=== PATIENT | male | born 1930 | race Caucasian/White ===

== ENCOUNTER 2019-03-28 12:28 | Inpatient (IN) ==
[2019-03-28 13:24] LABS: Bilirubin,Urine Negative (Negative); Blood,Urine Negative (Negative); Clarity,Urine Clear (Clear); Color,Urine Yellow (Yellow); Glucose,Urine (UA) Normal (Normal); Ketones,Urine Negative (Negative); Leukocyte Esterase,Urine Negative (Negative); Nitrite,Urine Negative (Negative); Protein,Urine 100 mg/dL (Neg-Trace); Specific Gravity,Urine 1.021 (1.010-1.025); Urobilinogen,Urine Normal (Normal)
[2019-03-28 13:28] LABS: Bacteria,Urine None Seen per hpf (None-Few); Hyaline Casts,Urine None Seen per lpf (None-Few); RBC,Urine 0-3 per hpf (0-3); Squamous Epithelial Cell,Urine Few per lpf (None-Few); WBC,Urine 0-3 per hpf (0-3)
[2019-03-28 13:50] LABS: Mean Corpuscular HGB Conc 33.3 g/dL (31.6-35.5); Mean Corpuscular Hemoglobin 30.3 pg (28.0-33.3); Mean Corpuscular Volume 90.9 fL (83.0-100.0); Mean Platelet Volume 8.6 fL (9.4-12.4); Monocytes # 1.2 K/mcL (0.0-1.3); Platelet Count 751 K/mcL (140-400); Red Blood Count 2.31 M/mcL (4.19-5.50); Red Cell Distribution Width 19.8 % (11.5-14.5); White Blood Count 14.7 K/mcL (4.3-11.1)
[2019-03-28 14:00] LABS: BUN/Creatinine Ratio 23 (6-26); Blood Urea Nitrogen 21 mg/dL (8-23); Calcium 8.7 mg/dL (8.6-10.3); Carbon Dioxide 23 mEq/L (23-29); Chloride 85 mEq/L (98-107); Glucose 162 mg/dL (70-105); Osmolality,Calculated 251 (280-300); Potassium 4.4 mEq/L (3.5-5.1); Sodium 117 mEq/L (136-145); eGFR For African Americans > 60 (> 60); eGFR For Non-African Americans > 60 (> 60)
[2019-03-28] MEDS ORDERED: 0.9 % Sodium Chloride 500 ML IVC ONE (14:07)
[2019-03-28 14:33] LABS: Eosinophils # 0.3 K/mcL (0.0-0.6); Lymphocytes # 1.2 K/mcL (0.6-4.6); Neutrophils # 11.8 K/mcL (1.6-8.9)
[2019-03-28 14:35] LABS: Anisocytosis 1+ (Not Present); Platelet Estimate Marked Increase (Normal)
[2019-03-28] MEDS ORDERED: Ondansetron 4 MG/2 ML VIAL IVP PRN (15:35)
[2019-03-28] MEDS ORDERED: Naloxone 0.4 MG/ML INJ IVP PRN (15:35)
[2019-03-28] MEDS ORDERED: Dextrose Gel 15 GM/37.5 ML TUBE PO PRN ×2 (16:28)
[2019-03-28] MEDS ORDERED: *HR* Dextrose 50 % in Water (Syg) 50 ML SYRINGE IVP PRN (16:28)
[2019-03-28] MEDS ORDERED: D5% in Water 1,000 ML IVC PRN (16:28)
[2019-03-28] MEDS ORDERED: Acetaminophen 325 MG TABLET PO PRN (16:42)
[2019-03-28] MEDS ORDERED: *HR* HYDROcodone/Acet 5/325 mg TABLET PO PRN (16:42)
[2019-03-28 17:12] LABS: BUN/Creatinine Ratio 23 (6-26); Blood Urea Nitrogen 19 mg/dL (8-23); Calcium 8.5 mg/dL (8.6-10.3); Carbon Dioxide 22 mEq/L (23-29); Chloride 87 mEq/L (98-107); Glucose 154 mg/dL (70-105); Osmolality,Calculated 251 (280-300); Potassium 4.3 mEq/L (3.5-5.1); Sodium 118 mEq/L (136-145); eGFR For African Americans > 60 (> 60); eGFR For Non-African Americans > 60 (> 60)
[2019-03-28] MEDS ORDERED: Furosemide 40 MG/4 ML VIAL IVP ONE (18:00)
[2019-03-28] MEDS ORDERED: 0.9 % Sodium Chloride 250 ML ONE ×2 (18:19→22:06)
[2019-03-28] MEDS: Insulin LISPRO 300 UNITS/3 ML VIAL SQ SCH ×2 (18:44→23:02)
[2019-03-28] MEDS: Ipratropium/Albuterol Neb 3 ML IH SCH (19:57)
[2019-03-29] MEDS: Ipratropium/Albuterol Neb 3 ML IH SCH ×7 (00:19→23:08)
[2019-03-29] MEDS: 0.9 % Sodium Chloride 1,000 ML IVC SCH ×3 (01:31→11:45)
[2019-03-29] MEDS: Piperacillin/Tazobactam 3.375 GM in 0.9 % Sodium Chloride Mini Bag 100 ML IVPB SCH ×4 (01:32→17:36)
[2019-03-29 04:22] LABS: Mean Corpuscular HGB Conc 33.7 g/dL (31.6-35.5); Mean Corpuscular Hemoglobin 29.9 pg (28.0-33.3); Mean Corpuscular Volume 88.8 fL (83.0-100.0); Mean Platelet Volume 8.4 fL (9.4-12.4); Nucleated Red Blood Cells 1.6 /100 WBC (0); Platelet Count 642 K/mcL (140-400); Red Blood Count 3.04 M/mcL (4.19-5.50); Red Cell Distribution Width 17.9 % (11.5-14.5); White Blood Count 13.5 K/mcL (4.3-11.1)
[2019-03-29 04:38] LABS: Hemoglobin 9.1 g/dL (12.9-16.9)
[2019-03-29 04:45] LABS: Albumin 3.3 g/dL (3.5-5.7); Albumin/Globulin Ratio 1.3 (1.1-2.2); Bilirubin,Direct 0.2 mg/dL (0.0-0.2); Bilirubin,Total 1.2 mg/dL (0.3-1.0); Globulin 2.6 g/dL (2.4-3.5); Total Protein 5.9 g/dL (6.4-8.9); Uric Acid 5.4 mg/dL (2.3-7.6)
[2019-03-29 04:52] LABS: BUN/Creatinine Ratio 19 (6-26); Blood Urea Nitrogen 18 mg/dL (8-23); Calcium 8.7 mg/dL (8.6-10.3); Carbon Dioxide 24 mEq/L (23-29); Chloride 87 mEq/L (98-107); Glucose 153 mg/dL (70-105); Magnesium 1.4 mg/dL (1.6-2.6); Osmolality,Calculated 255 (280-300); Sodium 120 mEq/L (136-145); eGFR For African Americans > 60 (> 60); eGFR For Non-African Americans > 60 (> 60)
[2019-03-29 06:16] LABS: Anisocytosis 1+ (Not Present); Eosinophils # 0.3 K/mcL (0.0-0.6); Lymphocytes # 1.6 K/mcL (0.6-4.6); Monocytes # 0.3 K/mcL (0.0-1.3); Neutrophils # 11.3 K/mcL (1.6-8.9); Platelet Estimate Increased (Normal); Polychromasia 1+ (Not Present); Reactive Lymphocytes Present (Not Present)
[2019-03-29] MEDS: Insulin LISPRO 300 UNITS/3 ML VIAL SQ SCH ×4 (07:51→20:50)
[2019-03-29 11:45] LABS: BUN/Creatinine Ratio 16 (6-26); Blood Urea Nitrogen 17 mg/dL (8-23); Calcium 8.2 mg/dL (8.6-10.3); Carbon Dioxide 22 mEq/L (23-29); Chloride 89 mEq/L (98-107); Glucose 190 mg/dL (70-105); Osmolality,Calculated 259 (280-300); Potassium 3.8 mEq/L (3.5-5.1); Sodium 121 mEq/L (136-145); eGFR For African Americans > 60 (> 60); eGFR For Non-African Americans > 60 (> 60)
[2019-03-29 12:05] LABS: Thyroid Stimulating Hormone 6.467 mcIU/mL (0.340-5.600)
[2019-03-29 14:54] LABS: BUN/Creatinine Ratio 17 (6-26); Blood Urea Nitrogen 19 mg/dL (8-23); Calcium 8.2 mg/dL (8.6-10.3); Carbon Dioxide 21 mEq/L (23-29); Chloride 89 mEq/L (98-107); Glucose 221 mg/dL (70-105); Osmolality,Calculated 263 (280-300); Sodium 122 mEq/L (136-145); eGFR For African Americans > 60 (> 60); eGFR For Non-African Americans > 60 (> 60)
[2019-03-29] MEDS ORDERED: Gadolinium Contrast Agent (WT Based) IV PRN (16:53)
[2019-03-29 18:15] LABS: BUN/Creatinine Ratio 19 (6-26); Blood Urea Nitrogen 20 mg/dL (8-23); Calcium 8.3 mg/dL (8.6-10.3); Carbon Dioxide 23 mEq/L (23-29); Chloride 89 mEq/L (98-107); Glucose 255 mg/dL (70-105); Osmolality,Calculated 263 (280-300); Sodium 121 mEq/L (136-145); eGFR For African Americans > 60 (> 60); eGFR For Non-African Americans > 60 (> 60)
[2019-03-29] MEDS: Insulin DETEMIR 100 UNIT/ML X5UNITS SQ SCH (20:49)
[2019-03-29 21:33] LABS: BUN/Creatinine Ratio 19 (6-26); Blood Urea Nitrogen 21 mg/dL (8-23); Calcium 8.4 mg/dL (8.6-10.3); Carbon Dioxide 23 mEq/L (23-29); Chloride 90 mEq/L (98-107); Glucose 157 mg/dL (70-105); Osmolality,Calculated 262 (280-300); Potassium 4.3 mEq/L (3.5-5.1); Sodium 123 mEq/L (136-145); eGFR For African Americans > 60 (> 60); eGFR For Non-African Americans > 60 (> 60)
[2019-03-30] MEDS: Piperacillin/Tazobactam 3.375 GM in 0.9 % Sodium Chloride Mini Bag 100 ML IVPB SCH ×3 (01:04→17:52)
[2019-03-30] MEDS: Ipratropium/Albuterol Neb 3 ML IH SCH ×5 (05:14→20:00)
[2019-03-30 05:30] LABS: Hemoglobin 7.6 g/dL (12.9-16.9); Mean Corpuscular Hemoglobin 30.8 pg (28.0-33.3); Mean Corpuscular Volume 93.1 fL (83.0-100.0); Mean Platelet Volume 8.6 fL (9.4-12.4); Nucleated Red Blood Cells 1.2 /100 WBC (0); Platelet Count 507 K/mcL (140-400); Red Blood Count 2.47 M/mcL (4.19-5.50); Red Cell Distribution Width 19.2 % (11.5-14.5); White Blood Count 11.1 K/mcL (4.3-11.1)
[2019-03-30 05:59] LABS: BUN/Creatinine Ratio 18 (6-26); Blood Urea Nitrogen 19 mg/dL (8-23); Calcium 8.7 mg/dL (8.6-10.3); Carbon Dioxide 24 mEq/L (23-29); Chloride 90 mEq/L (98-107); Glucose 194 mg/dL (70-105); Osmolality,Calculated 266 (280-300); Potassium 4.1 mEq/L (3.5-5.1); Sodium 124 mEq/L (136-145); eGFR For African Americans > 60 (> 60); eGFR For Non-African Americans > 60 (> 60)
[2019-03-30 06:01] LABS: Lymphocytes # 1.1 K/mcL (0.6-4.6); Monocytes # 1.1 K/mcL (0.0-1.3); Neutrophils # 8.9 K/mcL (1.6-8.9); Reactive Lymphocytes Present (Not Present)
[2019-03-30 06:02] LABS: Platelet Estimate Increased (Normal)
[2019-03-30] MEDS: Hydroxyurea 500 MG CAPSULE PO SCH ×2 (09:27→21:13)
[2019-03-30] MEDS: Metoprolol XL (24 HR) Succ 50 MG TAB.ER.24H PO SCH (09:27)
[2019-03-30] MEDS: Magnesium Oxide 400 MG TABLET PO SCH (09:27)
[2019-03-30] MEDS: Aspirin 81 MG TAB.CHEW PO SCH (09:27)
[2019-03-30] MEDS: Insulin LISPRO 300 UNITS/3 ML VIAL SQ SCH ×4 (09:31→21:15)
[2019-03-30] MEDS ORDERED: Furosemide 20 MG/2 ML VIAL IVP ONE (10:26)
[2019-03-30] MEDS: Loratadine 10 MG TABLET PO SCH (12:42)
[2019-03-30] MEDS ORDERED: 0.9 % Sodium Chloride 250 ML ONE (16:46)
[2019-03-30] MEDS: Fluticasone Propionate Nasal 50 MCG/SPRAY BOTTLE NS SCH (17:52)
[2019-03-30] MEDS ORDERED: Lisinopril 20 MG TABLET PO SCH (21:00)
[2019-03-30] MEDS: Insulin DETEMIR 100 UNIT/ML X5UNITS SQ SCH (21:14)
[2019-03-31] MEDS: Ipratropium/Albuterol Neb 3 ML IH SCH ×3 (00:16→07:53)
[2019-03-31] MEDS: Piperacillin/Tazobactam 3.375 GM in 0.9 % Sodium Chloride Mini Bag 100 ML IVPB SCH ×2 (00:40→09:12)
[2019-03-31 03:39] LABS: Hemoglobin 8.6 g/dL (12.9-16.9); Mean Corpuscular HGB Conc 34.4 g/dL (31.6-35.5); Mean Corpuscular Hemoglobin 31.3 pg (28.0-33.3); Mean Corpuscular Volume 90.9 fL (83.0-100.0); Mean Platelet Volume 8.5 fL (9.4-12.4); Platelet Count 486 K/mcL (140-400); Red Blood Count 2.75 M/mcL (4.19-5.50); Red Cell Distribution Width 18.6 % (11.5-14.5); White Blood Count 9.1 K/mcL (4.3-11.1)
[2019-03-31 03:56] LABS: BUN/Creatinine Ratio 20 (6-26); Blood Urea Nitrogen 22 mg/dL (8-23); Calcium 8.2 mg/dL (8.6-10.3); Carbon Dioxide 22 mEq/L (23-29); Chloride 92 mEq/L (98-107); Glucose 174 mg/dL (70-105); Osmolality,Calculated 264 (280-300); Potassium 4.2 mEq/L (3.5-5.1); Sodium 123 mEq/L (136-145); eGFR For African Americans > 60 (> 60); eGFR For Non-African Americans > 60 (> 60)
[2019-03-31 08:09] VITALS: BP 132/76
[2019-03-31] MEDS: Aspirin 81 MG TAB.CHEW PO SCH (09:11)
[2019-03-31] MEDS: Loratadine 10 MG TABLET PO SCH (09:11)
[2019-03-31] MEDS: Metoprolol XL (24 HR) Succ 50 MG TAB.ER.24H PO SCH (09:12)
[2019-03-31] MEDS: Magnesium Oxide 400 MG TABLET PO SCH (09:12)
[2019-03-31] MEDS: Fluticasone Propionate Nasal 50 MCG/SPRAY BOTTLE NS SCH (09:14)
[2019-03-31] MEDS: Insulin LISPRO 300 UNITS/3 ML VIAL SQ SCH (09:17)
[2019-03-31] MEDS: Hydroxyurea 500 MG CAPSULE PO SCH (09:28)
== END 2019-03-31 12:37 | disposition home or self-care (01) | DRG 643 ==
LOC: EMEROOARM 12:28 → 2ANU 12:28 → SUATTDRO 15:58 → 2ANU 16:54
PROVIDERS: ADMIT Internal Medicine; ATTEND Internal Medicine

== ENCOUNTER 2019-04-06 00:35 | Inpatient (IN) ==
[2019-04-06 04:19] LABS: Basophils # 0.2 K/mcL (0.0-0.2); Basophils % 2.2 %; Eosinophils % 0.1 %; Hematocrit 25.2 % (37.5-50.1); Lymphocytes # 0.7 K/mcL (0.6-4.6); Lymphocytes % 8.7 %; Mean Corpuscular HGB Conc 31.7 g/dL (31.6-35.5); Mean Corpuscular Hemoglobin 30.2 pg (28.0-33.3); Mean Corpuscular Volume 95.1 fL (83.0-100.0); Mean Platelet Volume 8.8 fL (9.4-12.4); Monocytes # 0.7 K/mcL (0.0-1.3); Monocytes % 8.9 %; Nucleated Red Blood Cells 0.6 /100 WBC (0); Platelet Count 500 K/mcL (140-400); Red Blood Count 2.65 M/mcL (4.19-5.50); Red Cell Distribution Width 17.3 % (11.5-14.5); Segmented Neutrophils % 62.1 %; White Blood Count 8.1 K/mcL (4.3-11.1)
[2019-04-06 04:37] LABS: BUN/Creatinine Ratio 22 (6-26); Blood Urea Nitrogen 27 mg/dL (8-23); Calcium 8.5 mg/dL (8.6-10.3); Carbon Dioxide 24 mEq/L (23-29); Chloride 95 mEq/L (98-107); Glucose 191 mg/dL (70-105); Osmolality,Calculated 274 (280-300); Potassium 4.5 mEq/L (3.5-5.1); Sodium 127 mEq/L (136-145); eGFR For African Americans > 60 (> 60); eGFR For Non-African Americans 56 (> 60)
[2019-04-06 05:03] LABS: Platelet Estimate Increased (Normal); Polychromasia 1+ (Not Present)
[2019-04-06] MEDS ORDERED: Acyclovir 700 MG in D5% in Water 250 ML IVPB ONE (06:20)
[2019-04-06] MEDS ORDERED: *HR* OxyCODONE Immed Rel 5 MG TABLET PO ONE (06:21)
[2019-04-06] MEDS ORDERED: Ipratropium/Albuterol Neb 3 ML IH PRN (10:26)
[2019-04-06] MEDS ORDERED: Furosemide 20 MG/2 ML VIAL IVP ONE (10:29)
[2019-04-06] MEDS ORDERED: *HR* Dextrose 50 % in Water (Syg) 50 ML SYRINGE IVP PRN (11:01)
[2019-04-06] MEDS ORDERED: Dextrose Gel 15 GM/37.5 ML TUBE PO PRN ×2 (11:01)
[2019-04-06] MEDS ORDERED: D5% in Water 1,000 ML IVC PRN (11:01)
[2019-04-06] MEDS: Ascorbic Acid 500 MG TABLET PO SCH (12:00)
[2019-04-06] MEDS: Metoprolol XL (24 HR) Succ 50 MG TAB.ER.24H PO SCH (12:01)
[2019-04-06] MEDS: Insulin LISPRO 300 UNITS/3 ML VIAL SQ SCH ×3 (13:31→21:21)
[2019-04-06] MEDS: Hydroxyurea 500 MG CAPSULE PO SCH (21:36)
[2019-04-07 04:39] LABS: Hematocrit 29.1 % (37.5-50.1); Hemoglobin 9.3 g/dL (12.9-16.9)
[2019-04-07 04:59] LABS: Alanine Aminotransferase 10 Units/L (7-52); Albumin 3.2 g/dL (3.5-5.7); Albumin/Globulin Ratio 1.3 (1.1-2.2); Alkaline Phosphatase 114 Units/L (34-104); Aspartate Amino Transferase 20 Units/L (13-39); BUN/Creatinine Ratio 21 (6-26); Bilirubin,Total 0.5 mg/dL (0.3-1.0); Blood Urea Nitrogen 23 mg/dL (8-23); Calcium 8.6 mg/dL (8.6-10.3); Carbon Dioxide 24 mEq/L (23-29); Chloride 95 mEq/L (98-107); Globulin 2.5 g/dL (2.4-3.5); Glucose 136 mg/dL (70-105); Osmolality,Calculated 266 (280-300); Potassium 4.5 mEq/L (3.5-5.1); Sodium 125 mEq/L (136-145); Total Protein 5.7 g/dL (6.4-8.9); eGFR For African Americans > 60 (> 60); eGFR For Non-African Americans > 60 (> 60)
[2019-04-07] MEDS: Hydroxyurea 500 MG CAPSULE PO SCH ×2 (09:41→22:00)
[2019-04-07] MEDS: Loratadine 10 MG TABLET PO SCH (09:41)
[2019-04-07] MEDS: Aspirin 81 MG TAB.CHEW PO SCH (09:42)
[2019-04-07] MEDS: Ascorbic Acid 500 MG TABLET PO SCH (09:42)
[2019-04-07] MEDS: Metoprolol XL (24 HR) Succ 50 MG TAB.ER.24H PO SCH (09:42)
[2019-04-07] MEDS: Multivit/Ca/Min/Fe/FA 1 TAB TABLET PO SCH (09:42)
[2019-04-07] MEDS: Magnesium Oxide 400 MG TABLET PO SCH (09:42)
[2019-04-07] MEDS: Insulin LISPRO 300 UNITS/3 ML VIAL SQ SCH ×4 (09:44→21:57)
[2019-04-07] MEDS ORDERED: Ipratropium/Albuterol Neb 3 ML IH PRN (13:31)
[2019-04-07] MEDS: Sucralfate 1 GM TABLET PO SCH ×2 (17:54→22:00)
[2019-04-08] MEDS ORDERED: Aminoglycoside Consult 1 EACH MC ONE (07:16)
[2019-04-08 08:01] LABS: Hematocrit 26.3 % (37.5-50.1); Hemoglobin 8.3 g/dL (12.9-16.9); Mean Corpuscular HGB Conc 31.6 g/dL (31.6-35.5); Mean Corpuscular Hemoglobin 30.2 pg (28.0-33.3); Mean Corpuscular Volume 95.6 fL (83.0-100.0); Mean Platelet Volume 8.8 fL (9.4-12.4); Platelet Count 595 K/mcL (140-400); Red Blood Count 2.75 M/mcL (4.19-5.50)
[2019-04-08 08:14] LABS: BUN/Creatinine Ratio 22 (6-26); Blood Urea Nitrogen 29 mg/dL (8-23); Calcium 8.6 mg/dL (8.6-10.3); Carbon Dioxide 24 mEq/L (23-29); Chloride 92 mEq/L (98-107); Glucose 136 mg/dL (70-105); Osmolality,Calculated 272 (280-300); Potassium 4.6 mEq/L (3.5-5.1); Sodium 127 mEq/L (136-145); eGFR For African Americans > 60 (> 60); eGFR For Non-African Americans 51 (> 60)
[2019-04-08] MEDS ORDERED: NON-FORMULARY MEDICATION 1 EACH EACH (Pantoprazole Sodium [Protonix] 40 MG) PO SCH (09:00)
[2019-04-08] MEDS: Insulin LISPRO 300 UNITS/3 ML VIAL SQ SCH ×4 (09:39→19:55)
[2019-04-08] MEDS: Sucralfate 1 GM TABLET PO SCH ×4 (09:54→19:59)
[2019-04-08] MEDS: Hydroxyurea 500 MG CAPSULE PO SCH ×2 (09:57→19:57)
[2019-04-08] MEDS: Metoprolol XL (24 HR) Succ 50 MG TAB.ER.24H PO SCH (09:57)
[2019-04-08] MEDS: Aspirin 81 MG TAB.CHEW PO SCH (09:58)
[2019-04-08] MEDS: Loratadine 10 MG TABLET PO SCH (09:58)
[2019-04-08] MEDS: Ascorbic Acid 500 MG TABLET PO SCH (09:58)
[2019-04-08] MEDS: Magnesium Oxide 400 MG TABLET PO SCH (09:58)
[2019-04-08] MEDS: Multivit/Ca/Min/Fe/FA 1 TAB TABLET PO SCH (09:58)
[2019-04-08] MEDS: Piperacillin/Tazobactam 3.375 GM in 0.9 % Sodium Chloride Mini Bag 100 ML IVPB SCH ×3 (10:55→23:23)
[2019-04-08] MEDS ORDERED: 0.9 % Sodium Chloride 1,000 ML IVC SCH (12:15)
[2019-04-08] MEDS: Acyclovir 750 MG in D5% in Water 250 ML IVPB SCH (16:58)
[2019-04-09] MEDS: Acyclovir 750 MG in D5% in Water 250 ML IVPB SCH ×2 (04:56→18:40)
[2019-04-09 05:09] LABS: Hematocrit 23.8 % (37.5-50.1); Hemoglobin 7.8 g/dL (12.9-16.9); Mean Corpuscular HGB Conc 32.8 g/dL (31.6-35.5); Mean Corpuscular Hemoglobin 30.2 pg (28.0-33.3); Mean Corpuscular Volume 92.2 fL (83.0-100.0); Mean Platelet Volume 8.7 fL (9.4-12.4); Platelet Count 558 K/mcL (140-400); Red Blood Count 2.58 M/mcL (4.19-5.50); Red Cell Distribution Width 16.5 % (11.5-14.5); White Blood Count 16.3 K/mcL (4.3-11.1)
[2019-04-09 05:12] LABS: Bilirubin,Urine Negative (Negative); Blood,Urine Trace (Negative); Clarity,Urine Cloudy (Clear); Color,Urine Yellow (Yellow); Glucose,Urine (UA) Normal (Normal); Ketones,Urine Negative (Negative); Leukocyte Esterase,Urine Negative (Negative); Nitrite,Urine Negative (Negative); Protein,Urine 100 mg/dL (Neg-Trace); Specific Gravity,Urine 1.022 (1.010-1.025); Urobilinogen,Urine Normal (Normal)
[2019-04-09 05:14] LABS: Hyaline Casts,Urine None Seen per lpf (None-Few); RBC,Urine 0-3 per hpf (0-3); WBC,Urine 0-3 per hpf (0-3)
[2019-04-09 05:25] LABS: Bacteria,Urine Few per hpf (None-Few); Squamous Epithelial Cell,Urine Few per lpf (None-Few)
[2019-04-09 05:26] LABS: Uric Acid Crystals,Urine Present
[2019-04-09 05:30] LABS: BUN/Creatinine Ratio 25 (6-26); Blood Urea Nitrogen 29 mg/dL (8-23); Calcium 8.2 mg/dL (8.6-10.3); Carbon Dioxide 22 mEq/L (23-29); Chloride 93 mEq/L (98-107); Glucose 146 mg/dL (70-105); Osmolality,Calculated 266 (280-300); Potassium 4.4 mEq/L (3.5-5.1); Sodium 124 mEq/L (136-145); eGFR For African Americans > 60 (> 60); eGFR For Non-African Americans > 60 (> 60)
[2019-04-09] MEDS: Piperacillin/Tazobactam 3.375 GM in 0.9 % Sodium Chloride Mini Bag 100 ML IVPB SCH ×2 (08:46→20:15)
[2019-04-09] MEDS: Loratadine 10 MG TABLET PO SCH (08:47)
[2019-04-09] MEDS: Aspirin 81 MG TAB.CHEW PO SCH (08:47)
[2019-04-09] MEDS: Multivit/Ca/Min/Fe/FA 1 TAB TABLET PO SCH (08:47)
[2019-04-09] MEDS: Sucralfate 1 GM TABLET PO SCH ×4 (08:47→21:43)
[2019-04-09] MEDS: Ascorbic Acid 500 MG TABLET PO SCH (08:47)
[2019-04-09] MEDS: Hydroxyurea 500 MG CAPSULE PO SCH ×2 (08:47→21:43)
[2019-04-09] MEDS: Metoprolol XL (24 HR) Succ 50 MG TAB.ER.24H PO SCH (08:47)
[2019-04-09] MEDS: Magnesium Oxide 400 MG TABLET PO SCH (08:47)
[2019-04-09] MEDS: Insulin LISPRO 300 UNITS/3 ML VIAL SQ SCH ×4 (08:48→21:44)
[2019-04-10] MEDS: Piperacillin/Tazobactam 3.375 GM in 0.9 % Sodium Chloride Mini Bag 100 ML IVPB SCH ×3 (03:14→22:19)
[2019-04-10 08:13] LABS: Hematocrit 25.5 % (37.5-50.1); Hemoglobin 8.6 g/dL (12.9-16.9); Mean Corpuscular HGB Conc 33.7 g/dL (31.6-35.5); Mean Corpuscular Hemoglobin 30.1 pg (28.0-33.3); Mean Corpuscular Volume 89.2 fL (83.0-100.0); Mean Platelet Volume 9.1 fL (9.4-12.4); Platelet Count 537 K/mcL (140-400); Red Blood Count 2.86 M/mcL (4.19-5.50); Red Cell Distribution Width 16.6 % (11.5-14.5)
[2019-04-10 08:20] LABS: BUN/Creatinine Ratio 25 (6-26); Blood Urea Nitrogen 25 mg/dL (8-23); Calcium 8.1 mg/dL (8.6-10.3); Carbon Dioxide 21 mEq/L (23-29); Chloride 93 mEq/L (98-107); Glucose 152 mg/dL (70-105); Magnesium 1.6 mg/dL (1.6-2.6); Osmolality,Calculated 265 (280-300); Potassium 4.7 mEq/L (3.5-5.1); Sodium 124 mEq/L (136-145); eGFR For African Americans > 60 (> 60); eGFR For Non-African Americans > 60 (> 60)
[2019-04-10] MEDS: Loratadine 10 MG TABLET PO SCH (09:19)
[2019-04-10] MEDS: Magnesium Oxide 400 MG TABLET PO SCH (09:19)
[2019-04-10] MEDS: Sucralfate 1 GM TABLET PO SCH ×4 (09:19→22:19)
[2019-04-10] MEDS: Aspirin 81 MG TAB.CHEW PO SCH (09:19)
[2019-04-10] MEDS: Metoprolol XL (24 HR) Succ 50 MG TAB.ER.24H PO SCH (09:19)
[2019-04-10] MEDS: Hydroxyurea 500 MG CAPSULE PO SCH ×2 (09:19→22:19)
[2019-04-10] MEDS: Ascorbic Acid 500 MG TABLET PO SCH (09:20)
[2019-04-10] MEDS: Insulin LISPRO 300 UNITS/3 ML VIAL SQ SCH ×4 (09:21→22:20)
[2019-04-10] MEDS: Multivit/Ca/Min/Fe/FA 1 TAB TABLET PO SCH (09:21)
[2019-04-10] MEDS: Acyclovir 750 MG in D5% in Water 250 ML IVPB SCH ×2 (09:22→19:07)
[2019-04-10] MEDS: predniSONE 20 MG TABLET PO SCH (12:33)
[2019-04-11] MEDS: Acyclovir 750 MG in D5% in Water 250 ML IVPB SCH ×2 (04:50→17:12)
[2019-04-11 05:02] LABS: Hematocrit 27.7 % (37.5-50.1); Hemoglobin 9.1 g/dL (12.9-16.9); Mean Corpuscular HGB Conc 32.9 g/dL (31.6-35.5); Mean Corpuscular Hemoglobin 29.4 pg (28.0-33.3); Mean Corpuscular Volume 89.4 fL (83.0-100.0); Mean Platelet Volume 8.9 fL (9.4-12.4); Platelet Count 662 K/mcL (140-400); Red Cell Distribution Width 16.1 % (11.5-14.5); White Blood Count 20.2 K/mcL (4.3-11.1)
[2019-04-11 05:18] LABS: BUN/Creatinine Ratio 21 (6-26); Blood Urea Nitrogen 20 mg/dL (8-23); Calcium 8.5 mg/dL (8.6-10.3); Carbon Dioxide 22 mEq/L (23-29); Chloride 93 mEq/L (98-107); Glucose 131 mg/dL (70-105); Osmolality,Calculated 262 (280-300); Potassium 4.2 mEq/L (3.5-5.1); Sodium 124 mEq/L (136-145); eGFR For African Americans > 60 (> 60); eGFR For Non-African Americans > 60 (> 60)
[2019-04-11] MEDS: Piperacillin/Tazobactam 3.375 GM in 0.9 % Sodium Chloride Mini Bag 100 ML IVPB SCH ×3 (06:08→21:38)
[2019-04-11] MEDS: Insulin LISPRO 300 UNITS/3 ML VIAL SQ SCH ×4 (08:08→21:38)
[2019-04-11] MEDS: Sucralfate 1 GM TABLET PO SCH ×4 (08:09→21:38)
[2019-04-11] MEDS: Aspirin 81 MG TAB.CHEW PO SCH (08:09)
[2019-04-11] MEDS: Loratadine 10 MG TABLET PO SCH (08:09)
[2019-04-11] MEDS: Hydroxyurea 500 MG CAPSULE PO SCH ×2 (08:10→21:38)
[2019-04-11] MEDS: Magnesium Oxide 400 MG TABLET PO SCH (08:10)
[2019-04-11] MEDS: Metoprolol XL (24 HR) Succ 50 MG TAB.ER.24H PO SCH (08:10)
[2019-04-11] MEDS: predniSONE 20 MG TABLET PO SCH (08:10)
[2019-04-11 11:41] LABS: Adenovirus F 40/41 PCR Not detected (Not detect); Astrovirus PCR Not detected (Not detect); C.difficile Toxin A/B Gene PCR Not detected (Not detect); Campylobacter by PCR Not detected (Not detect); Cryptosporidium by PCR Not detected (Not detect); Cyclospora cayetanensis PCR Not detected (Not detect); E. coli O157 by PCR Not detected (Not detect); Entamoeba histolytica PCR Not detected (Not detect); Enteroaggregative E.coli(EAEC) Not detected (Not detect); Enteropathogenic E.coli(EPEC) Not detected (Not detect); Enterotoxigenic E.coli (ETEC) Not detected (Not detect); Giardia lamblia PCR Not detected (Not detect); Norovirus GI/GII PCR Not detected (Not detect); Plesiomonas shigelloides PCR Not detected (Not detect); Rotavirus A PCR Not detected (Not detect); Salmonella PCR Not detected (Not detect); Sapovirus PCR Not detected (Not detect); Shig/EnteroinvasiveE coli EIEC Not detected (Not detect); Shigalike tox-prod E coli STEC Not detected (Not detect); Vibrio PCR Not detected (Not detect); Vibrio cholerae PCR Not detected (Not detect); Yersinia enterocolitica PCR Not detected (Not detect)
[2019-04-12] MEDS ORDERED: Haloperidol Lactate 5 MG/ML VIAL IVP ONE ×2 (01:15→02:32)
[2019-04-12] MEDS ORDERED: *HR* Promethazine 25 MG/ML VIAL IVP ONE (02:32)
[2019-04-12] MEDS: Piperacillin/Tazobactam 3.375 GM in 0.9 % Sodium Chloride Mini Bag 100 ML IVPB SCH ×3 (03:09→21:29)
[2019-04-12] MEDS ORDERED: *HR* LORazepam 2 MG/ML VIAL IVP ONE (05:45)
[2019-04-12 06:16] LABS: Hematocrit 25.9 % (37.5-50.1); Hemoglobin 8.7 g/dL (12.9-16.9); Mean Corpuscular HGB Conc 33.6 g/dL (31.6-35.5); Mean Corpuscular Hemoglobin 30.5 pg (28.0-33.3); Mean Corpuscular Volume 90.9 fL (83.0-100.0); Mean Platelet Volume 8.8 fL (9.4-12.4); Platelet Count 814 K/mcL (140-400); Red Blood Count 2.85 M/mcL (4.19-5.50); Red Cell Distribution Width 16.2 % (11.5-14.5); White Blood Count 22.5 K/mcL (4.3-11.1)
[2019-04-12 06:45] LABS: BUN/Creatinine Ratio 20 (6-26); Blood Urea Nitrogen 18 mg/dL (8-23); Calcium 8.6 mg/dL (8.6-10.3); Carbon Dioxide 22 mEq/L (23-29); Chloride 93 mEq/L (98-107); Glucose 156 mg/dL (70-105); Osmolality,Calculated 269 (280-300); Potassium 3.7 mEq/L (3.5-5.1); Sodium 127 mEq/L (136-145); eGFR For African Americans > 60 (> 60); eGFR For Non-African Americans > 60 (> 60)
[2019-04-12] MEDS: Insulin LISPRO 300 UNITS/3 ML VIAL SQ SCH ×5 (07:32→21:27)
[2019-04-12] MEDS: Acyclovir 750 MG in D5% in Water 250 ML IVPB SCH (07:33)
[2019-04-12] MEDS: Furosemide 20 MG/2 ML VIAL IVP ONE (08:04)
[2019-04-12] MEDS: Loratadine 10 MG TABLET PO SCH (08:04)
[2019-04-12] MEDS: Metoprolol XL (24 HR) Succ 50 MG TAB.ER.24H PO SCH (08:04)
[2019-04-12] MEDS: Magnesium Oxide 400 MG TABLET PO SCH (08:04)
[2019-04-12] MEDS: Sucralfate 1 GM TABLET PO SCH ×4 (08:04→21:28)
[2019-04-12] MEDS: Hydroxyurea 500 MG CAPSULE PO SCH ×2 (08:04→21:28)
[2019-04-12] MEDS: Aspirin 81 MG TAB.CHEW PO SCH (08:05)
[2019-04-12] MEDS ORDERED: predniSONE 10 MG TABLET PO ONE (09:00)
[2019-04-12 17:51] LABS: Nucleated Red Blood Cells 0.7 /100 WBC (0)
[2019-04-12 20:50] LABS: Anisocytosis 1+ (Not Present); Eosinophils # 0.2 K/mcL (0.0-0.6); Monocytes # 0.7 K/mcL (0.0-1.3); Neutrophils # 18.9 K/mcL (1.6-8.9); Platelet Estimate Marked Increase (Normal); Reactive Lymphocytes Present (Not Present)
[2019-04-12 20:51] LABS: Poikilocytosis 1+ (Not Present)
[2019-04-12] MEDS ORDERED: traZODone 50 MG TABLET PO SCH (21:00)
[2019-04-13] MEDS: Piperacillin/Tazobactam 3.375 GM in 0.9 % Sodium Chloride Mini Bag 100 ML IVPB SCH ×3 (05:05→21:05)
[2019-04-13 06:16] LABS: Hematocrit 25.1 % (37.5-50.1); Lymphocytes # 1.3 K/mcL (0.6-4.6); Mean Corpuscular HGB Conc 31.9 g/dL (31.6-35.5); Mean Corpuscular Hemoglobin 30.3 pg (28.0-33.3); Mean Corpuscular Volume 95.1 fL (83.0-100.0); Mean Platelet Volume 8.7 fL (9.4-12.4); Nucleated Red Blood Cells 1.1 /100 WBC (0); Platelet Count 814 K/mcL (140-400); Red Blood Count 2.64 M/mcL (4.19-5.50); Red Cell Distribution Width 16.6 % (11.5-14.5); White Blood Count 21.5 K/mcL (4.3-11.1)
[2019-04-13 06:23] LABS: BUN/Creatinine Ratio 16 (6-26); Blood Urea Nitrogen 15 mg/dL (8-23); Calcium 8.7 mg/dL (8.6-10.3); Carbon Dioxide 22 mEq/L (23-29); Chloride 94 mEq/L (98-107); Glucose 163 mg/dL (70-105); Osmolality,Calculated 276 (280-300); Potassium 3.9 mEq/L (3.5-5.1); Sodium 131 mEq/L (136-145); eGFR For African Americans > 60 (> 60); eGFR For Non-African Americans > 60 (> 60)
[2019-04-13] MEDS ORDERED: Haloperidol Lactate 5 MG/ML VIAL IVP ONE (06:26)
[2019-04-13 06:50] LABS: Neutrophils # 19.8 K/mcL (1.6-8.9); Reactive Lymphocytes Present (Not Present)
[2019-04-13 06:51] LABS: Platelet Estimate Increased (Normal)
[2019-04-13] MEDS: Insulin LISPRO 300 UNITS/3 ML VIAL SQ SCH ×4 (09:00→21:06)
[2019-04-13] MEDS: Hydroxyurea 500 MG CAPSULE PO SCH ×2 (09:18→21:06)
[2019-04-13] MEDS: Aspirin 81 MG TAB.CHEW PO SCH (09:18)
[2019-04-13] MEDS: Metoprolol XL (24 HR) Succ 50 MG TAB.ER.24H PO SCH (09:18)
[2019-04-13] MEDS: Sucralfate 1 GM TABLET PO SCH ×4 (09:18→21:06)
[2019-04-13] MEDS: Magnesium Oxide 400 MG TABLET PO SCH (09:19)
[2019-04-13] MEDS: Loratadine 10 MG TABLET PO SCH (09:19)
[2019-04-13] MEDS: Insulin DETEMIR 100 UNIT/ML X5UNITS SQ SCH (21:25)
[2019-04-14] MEDS: Piperacillin/Tazobactam 3.375 GM in 0.9 % Sodium Chloride Mini Bag 100 ML IVPB SCH ×3 (04:27→20:07)
[2019-04-14] MEDS: Insulin LISPRO 300 UNITS/3 ML VIAL SQ SCH ×4 (08:38→20:35)
[2019-04-14] MEDS: Aspirin 81 MG TAB.CHEW PO SCH (08:39)
[2019-04-14] MEDS: Magnesium Oxide 400 MG TABLET PO SCH (08:39)
[2019-04-14] MEDS: Sucralfate 1 GM TABLET PO SCH ×4 (08:40→20:09)
[2019-04-14] MEDS: Hydroxyurea 500 MG CAPSULE PO SCH ×2 (08:40→20:09)
[2019-04-14] MEDS: Loratadine 10 MG TABLET PO SCH (08:40)
[2019-04-14] MEDS: Metoprolol XL (24 HR) Succ 50 MG TAB.ER.24H PO SCH (08:40)
[2019-04-14 13:23] LABS: Hematocrit 23.4 % (37.5-50.1); Hemoglobin 7.6 g/dL (12.9-16.9); Mean Corpuscular HGB Conc 32.5 g/dL (31.6-35.5); Mean Corpuscular Volume 92.5 fL (83.0-100.0); Mean Platelet Volume 8.7 fL (9.4-12.4); Nucleated Red Blood Cells 0.8 /100 WBC (0); Platelet Count 639 K/mcL (140-400); Red Blood Count 2.53 M/mcL (4.19-5.50); Red Cell Distribution Width 16.7 % (11.5-14.5); White Blood Count 16.1 K/mcL (4.3-11.1)
[2019-04-14 13:34] LABS: BUN/Creatinine Ratio 18 (6-26); Blood Urea Nitrogen 14 mg/dL (8-23); Calcium 8.5 mg/dL (8.6-10.3); Carbon Dioxide 25 mEq/L (23-29); Chloride 98 mEq/L (98-107); Glucose 187 mg/dL (70-105); Osmolality,Calculated 277 (280-300); Potassium 3.9 mEq/L (3.5-5.1); Sodium 131 mEq/L (136-145); eGFR For African Americans > 60 (> 60); eGFR For Non-African Americans > 60 (> 60)
[2019-04-14 13:41] LABS: Lymphocytes # 1.6 K/mcL (0.6-4.6); Neutrophils # 14.5 K/mcL (1.6-8.9); Platelet Estimate Increased (Normal)
[2019-04-14 13:42] LABS: Anisocytosis 1+ (Not Present)
[2019-04-14] MEDS ORDERED: Furosemide 20 MG/2 ML VIAL IVP ONE (13:57)
[2019-04-14] MEDS ORDERED: 0.9 % Sodium Chloride 250 ML IVC SCH (14:00)
[2019-04-14] MEDS: Furosemide 20 MG/2 ML VIAL IVP ONE (19:57)
[2019-04-14] MEDS: Insulin DETEMIR 100 UNIT/ML X5UNITS SQ SCH (20:08)
[2019-04-15 03:13] LABS: Hematocrit 27.9 % (37.5-50.1); Hemoglobin 9.1 g/dL (12.9-16.9); Mean Corpuscular HGB Conc 32.6 g/dL (31.6-35.5); Mean Corpuscular Hemoglobin 29.5 pg (28.0-33.3); Mean Corpuscular Volume 90.6 fL (83.0-100.0); Mean Platelet Volume 8.5 fL (9.4-12.4); Platelet Count 658 K/mcL (140-400); Red Blood Count 3.08 M/mcL (4.19-5.50); Red Cell Distribution Width 17.6 % (11.5-14.5); White Blood Count 13.9 K/mcL (4.3-11.1)
[2019-04-15 03:32] LABS: BUN/Creatinine Ratio 17 (6-26); Blood Urea Nitrogen 15 mg/dL (8-23); Calcium 8.6 mg/dL (8.6-10.3); Carbon Dioxide 26 mEq/L (23-29); Chloride 97 mEq/L (98-107); Glucose 135 mg/dL (70-105); Osmolality,Calculated 277 (280-300); Potassium 3.4 mEq/L (3.5-5.1); Sodium 132 mEq/L (136-145); eGFR For African Americans > 60 (> 60); eGFR For Non-African Americans > 60 (> 60)
[2019-04-15] MEDS: Piperacillin/Tazobactam 3.375 GM in 0.9 % Sodium Chloride Mini Bag 100 ML IVPB SCH ×2 (04:29→12:32)
[2019-04-15 04:30] LABS: Eosinophils # 0.3 K/mcL (0.0-0.6); Lymphocytes # 2.1 K/mcL (0.6-4.6); Neutrophils # 11.5 K/mcL (1.6-8.9); Reactive Lymphocytes Present (Not Present)
[2019-04-15 04:31] LABS: Anisocytosis 1+ (Not Present); Platelet Estimate Increased (Normal)
[2019-04-15 07:29] VITALS: BP 153/75
[2019-04-15] MEDS: Insulin LISPRO 300 UNITS/3 ML VIAL SQ SCH ×2 (08:12→12:33)
[2019-04-15] MEDS: Magnesium Oxide 400 MG TABLET PO SCH (08:12)
[2019-04-15] MEDS: Hydroxyurea 500 MG CAPSULE PO SCH (08:13)
[2019-04-15] MEDS: Aspirin 81 MG TAB.CHEW PO SCH (08:13)
[2019-04-15] MEDS: Loratadine 10 MG TABLET PO SCH (08:13)
[2019-04-15] MEDS: Sucralfate 1 GM TABLET PO SCH ×2 (08:13→12:32)
[2019-04-15] MEDS: Metoprolol XL (24 HR) Succ 50 MG TAB.ER.24H PO SCH (08:13)
== END 2019-04-15 17:12 | DRG 595 ==
LOC: 3ANU 00:35 → EMEROOARM 00:35 → SUATTDRO 07:03 → 3ANU 08:16 → SUATTDRO 04-07 17:03
PROVIDERS: ADMIT Internal Medicine; ATTEND Internal Medicine

== ENCOUNTER 2019-05-05 17:47 | Inpatient (IN) ==
[2019-05-05] MEDS ORDERED: Naloxone 0.4 MG/ML INJ IVP PRN (21:24)
[2019-05-05] MEDS ORDERED: Isovue-370 500 ML BOTTLE IVP ONE (21:26)
[2019-05-05] MEDS ORDERED: D5% in Water 1,000 ML IVC PRN (21:28)
[2019-05-05] MEDS ORDERED: Dextrose Gel 15 GM/37.5 ML TUBE PO PRN ×2 (21:28)
[2019-05-05] MEDS ORDERED: *HR* Dextrose 50 % in Water (Syg) 50 ML SYRINGE IVP PRN (21:28)
[2019-05-05] MEDS: Furosemide 20 MG/2 ML VIAL IVP SCH (22:11)
[2019-05-05] MEDS: Insulin LISPRO 300 UNITS/3 ML VIAL SQ SCH (22:14)
[2019-05-06] MEDS ORDERED: Morphine Sulfate 2 MG/ML SYRINGE IV PRN (02:25)
[2019-05-06 05:26] LABS: Hematocrit 26.2 % (37.5-50.1); Hemoglobin 8.4 g/dL (12.9-16.9); Mean Corpuscular HGB Conc 32.1 g/dL (31.6-35.5); Mean Corpuscular Hemoglobin 30.7 pg (28.0-33.3); Mean Corpuscular Volume 95.6 fL (83.0-100.0); Mean Platelet Volume 9.3 fL (9.4-12.4); Platelet Count 473 K/mcL (140-400); Red Blood Count 2.74 M/mcL (4.19-5.50); Red Cell Distribution Width 21.2 % (11.5-14.5)
[2019-05-06 05:46] LABS: Alanine Aminotransferase 8 Units/L (7-52); Albumin 2.9 g/dL (3.5-5.7); Albumin/Globulin Ratio 1.3 (1.1-2.2); Alkaline Phosphatase 85 Units/L (34-104); Aspartate Amino Transferase 15 Units/L (13-39); BUN/Creatinine Ratio 21 (6-26); Bilirubin,Total 0.5 mg/dL (0.3-1.0); Blood Urea Nitrogen 18 mg/dL (8-23); Calcium 8.3 mg/dL (8.6-10.3); Carbon Dioxide 30 mEq/L (23-29); Chloride 97 mEq/L (98-107); Globulin 2.2 g/dL (2.4-3.5); Glucose 181 mg/dL (70-105); Magnesium 1.5 mg/dL (1.6-2.6); Osmolality,Calculated 286 (280-300); Potassium 4.1 mEq/L (3.5-5.1); Sodium 135 mEq/L (136-145); Total Protein 5.1 g/dL (6.4-8.9); eGFR For African Americans > 60 (> 60); eGFR For Non-African Americans > 60 (> 60)
[2019-05-06] MEDS: Insulin LISPRO 300 UNITS/3 ML VIAL SQ SCH ×4 (08:26→20:49)
[2019-05-06] MEDS: Furosemide 20 MG/2 ML VIAL IVP SCH (08:26)
[2019-05-06] MEDS ORDERED: Ipratropium/Albuterol Neb 3 ML IH PRN (08:50)
[2019-05-06] MEDS: Aspirin 81 MG TAB.CHEW PO SCH (10:35)
[2019-05-06] MEDS: MethylPREDNISolone 40 MG/ML VIAL IVP SCH ×2 (10:35→18:10)
[2019-05-06] MEDS ORDERED: Metoprolol XL (24 HR) Succ 50 MG TAB.ER.24H PO STA (15:08)
[2019-05-06] MEDS: *HR* FentaNYL PATCH 25 MCG PATCH TD SCH (16:24)
[2019-05-06] MEDS: Ondansetron ODT 4 MG TAB.RAPDIS PO SCH ×2 (16:27→20:48)
[2019-05-06] MEDS: Furosemide 40 MG/4 ML VIAL IVP SCH (16:27)
[2019-05-06] MEDS: *HR* Heparin 5,000 UNIT/ML VIAL SQ SCH ×2 (16:37→20:48)
[2019-05-06] MEDS: Sucralfate 1 GM TABLET PO SCH (18:10)
[2019-05-06 19:38] LABS: Adenovirus Not Detected (Not Detect); Bordetella Pertussis Not Detected (Not Detect); Chlamydophila pneumoniae Not Detected (Not Detect); Coronavirus 229E Not Detected (Not Detect); Coronavirus HKU1 Not Detected (Not Detect); Coronavirus NL63 Not Detected (Not Detect); Coronavirus OC43 Not Detected (Not Detect); Human Metapneumovirus Not Detected (Not Detect); Human Rhinovirus/Enterovirus Not Detected (Not Detect); Influenza A Subtype 2009 H1 Not Detected (Not Detect); Influenza B Not Detected (Not Detect); Mycoplasma pneumoniae Not Detected (Not Detect); Parainfluenza Virus 1 Not Detected (Not Detect); Parainfluenza Virus 2 Not Detected (Not Detect); Parainfluenza Virus 3 Not Detected (Not Detect); Parainfluenza Virus 4 Not Detected (Not Detect); Respiratory Syncytial Virus Not Detected (Not Detect)
[2019-05-06] MEDS: traZODone 50 MG TABLET PO SCH (20:48)
[2019-05-06] MEDS ORDERED: QUEtiapine Fumarate 25 MG TABLET PO SCH (21:00)
[2019-05-06] MEDS ORDERED: Insulin LISPRO 300 UNITS/3 ML VIAL SQ SCH (21:15)
[2019-05-07] MEDS: Sucralfate 1 GM TABLET PO SCH ×4 (01:42→16:30)
[2019-05-07 02:07] LABS: Hematocrit 25.5 % (37.5-50.1); Hemoglobin 8.3 g/dL (12.9-16.9); Mean Corpuscular HGB Conc 32.5 g/dL (31.6-35.5); Mean Corpuscular Volume 95.1 fL (83.0-100.0); Mean Platelet Volume 9.6 fL (9.4-12.4); Nucleated Red Blood Cells 0.2 /100 WBC (0); Platelet Count 463 K/mcL (140-400); Red Blood Count 2.68 M/mcL (4.19-5.50); Red Cell Distribution Width 20.9 % (11.5-14.5); White Blood Count 11.8 K/mcL (4.3-11.1)
[2019-05-07 02:29] LABS: BUN/Creatinine Ratio 32 (6-26); Blood Urea Nitrogen 26 mg/dL (8-23); Calcium 8.2 mg/dL (8.6-10.3); Carbon Dioxide 29 mEq/L (23-29); Chloride 94 mEq/L (98-107); Glucose 239 mg/dL (70-105); Magnesium 1.6 mg/dL (1.6-2.6); Osmolality,Calculated 285 (280-300); Phosphorous 3.1 mg/dL (2.7-4.5); Potassium 3.9 mEq/L (3.5-5.1); Sodium 131 mEq/L (136-145); eGFR For African Americans > 60 (> 60); eGFR For Non-African Americans > 60 (> 60)
[2019-05-07 02:36] LABS: Lymphocytes # 1.2 K/mcL (0.6-4.6); Neutrophils # 10.6 K/mcL (1.6-8.9)
[2019-05-07] MEDS: MethylPREDNISolone 40 MG/ML VIAL IVP SCH (05:45)
[2019-05-07] MEDS: *HR* Heparin 5,000 UNIT/ML VIAL SQ SCH ×3 (05:45→21:34)
[2019-05-07] MEDS: Ondansetron ODT 4 MG TAB.RAPDIS PO SCH ×3 (08:11→16:30)
[2019-05-07] MEDS: Magnesium Oxide 400 MG TABLET PO SCH (08:12)
[2019-05-07] MEDS: Ascorbic Acid 500 MG TABLET PO SCH (08:12)
[2019-05-07] MEDS: Pyridoxine (B-6) 50 MG TABLET PO SCH (08:12)
[2019-05-07] MEDS: Aspirin 81 MG TAB.CHEW PO SCH (08:12)
[2019-05-07] MEDS: Insulin DETEMIR 100 UNIT/ML X5UNITS SQ SCH ×2 (08:12→21:40)
[2019-05-07] MEDS: Gabapentin 300 MG CAPSULE PO SCH (08:12)
[2019-05-07] MEDS: Metoprolol XL (24 HR) Succ 50 MG TAB.ER.24H PO SCH (08:12)
[2019-05-07] MEDS: Furosemide 40 MG/4 ML VIAL IVP SCH ×2 (08:12→16:30)
[2019-05-07] MEDS: Insulin LISPRO 300 UNITS/3 ML VIAL SQ SCH ×4 (08:13→21:36)
[2019-05-07] MEDS: Fluticasone Propionate Nasal 50 MCG/SPRAY BOTTLE NS SCH (08:14)
[2019-05-07] MEDS ORDERED: Ondansetron ODT 4 MG TAB.RAPDIS PO PRN (18:56)
[2019-05-07] MEDS: traZODone 50 MG TABLET PO SCH (21:35)
[2019-05-08] MEDS: Sucralfate 1 GM TABLET PO SCH ×4 (00:50→17:52)
[2019-05-08] MEDS: *HR* Heparin 5,000 UNIT/ML VIAL SQ SCH (05:34)
[2019-05-08 06:20] LABS: Mean Corpuscular HGB Conc 30.8 g/dL (31.6-35.5); Mean Corpuscular Hemoglobin 30.8 pg (28.0-33.3); Mean Platelet Volume 9.6 fL (9.4-12.4); Platelet Count 500 K/mcL (140-400); Red Cell Distribution Width 21.1 % (11.5-14.5); White Blood Count 7.7 K/mcL (4.3-11.1)
[2019-05-08 06:33] LABS: BUN/Creatinine Ratio 37 (6-26); Blood Urea Nitrogen 38 mg/dL (8-23); Calcium 8.2 mg/dL (8.6-10.3); Carbon Dioxide 33 mEq/L (23-29); Chloride 93 mEq/L (98-107); Glucose 203 mg/dL (70-105); Osmolality,Calculated 291 (280-300); Sodium 133 mEq/L (136-145); eGFR For African Americans > 60 (> 60); eGFR For Non-African Americans > 60 (> 60)
[2019-05-08 07:38] LABS: Hematocrit 24.8 % (37.5-50.1); Hemoglobin 8.1 g/dL (12.9-16.9)
[2019-05-08] MEDS: Insulin DETEMIR 100 UNIT/ML X5UNITS SQ SCH ×2 (09:13→20:26)
[2019-05-08] MEDS: Insulin LISPRO 300 UNITS/3 ML VIAL SQ SCH ×4 (09:14→20:26)
[2019-05-08] MEDS: Metoprolol XL (24 HR) Succ 50 MG TAB.ER.24H PO SCH (09:18)
[2019-05-08] MEDS: Gabapentin 300 MG CAPSULE PO SCH (09:18)
[2019-05-08] MEDS: Pyridoxine (B-6) 50 MG TABLET PO SCH (09:18)
[2019-05-08] MEDS: Ascorbic Acid 500 MG TABLET PO SCH (09:18)
[2019-05-08] MEDS: Magnesium Oxide 400 MG TABLET PO SCH (09:18)
[2019-05-08] MEDS: Furosemide 40 MG/4 ML VIAL IVP SCH ×2 (09:18→17:52)
[2019-05-08] MEDS: Aspirin 81 MG TAB.CHEW PO SCH (09:18)
[2019-05-08] MEDS: predniSONE 20 MG TABLET PO SCH (09:19)
[2019-05-08] MEDS: Fluticasone Propionate Nasal 50 MCG/SPRAY BOTTLE NS SCH (09:19)
[2019-05-08 14:25] LABS: Hematocrit 28.5 % (37.5-50.1); Hemoglobin 9.1 g/dL (12.9-16.9)
[2019-05-08] MEDS: Acetaminophen 325 MG TABLET PO PRN (15:45)
[2019-05-08] MEDS: traZODone 50 MG TABLET PO SCH (20:26)
[2019-05-09] MEDS: Sucralfate 1 GM TABLET PO SCH ×4 (01:15→17:11)
[2019-05-09] MEDS ORDERED: Insulin Human Regular 10 UNIT in 0.9 % Sodium Chloride 10 ML IV ONE (01:15)
[2019-05-09 01:55] LABS: Hematocrit 26.3 % (37.5-50.1); Hemoglobin 8.2 g/dL (12.9-16.9); Mean Corpuscular HGB Conc 31.2 g/dL (31.6-35.5); Mean Corpuscular Hemoglobin 30.9 pg (28.0-33.3); Mean Corpuscular Volume 99.2 fL (83.0-100.0); Mean Platelet Volume 9.6 fL (9.4-12.4); Platelet Count 516 K/mcL (140-400); Red Blood Count 2.65 M/mcL (4.19-5.50); Red Cell Distribution Width 20.9 % (11.5-14.5); White Blood Count 8.8 K/mcL (4.3-11.1)
[2019-05-09 02:19] LABS: BUN/Creatinine Ratio 45 (6-26); Blood Urea Nitrogen 46 mg/dL (8-23); Calcium 8.5 mg/dL (8.6-10.3); Carbon Dioxide 33 mEq/L (23-29); Chloride 92 mEq/L (98-107); Glucose 256 mg/dL (70-105); Osmolality,Calculated 295 (280-300); Potassium 3.9 mEq/L (3.5-5.1); Sodium 132 mEq/L (136-145); eGFR For African Americans > 60 (> 60); eGFR For Non-African Americans > 60 (> 60)
[2019-05-09] MEDS: Insulin LISPRO 300 UNITS/3 ML VIAL SQ SCH ×4 (10:44→20:29)
[2019-05-09] MEDS: Insulin DETEMIR 100 UNIT/ML X5UNITS SQ SCH ×2 (10:45→20:31)
[2019-05-09] MEDS: Fluticasone Propionate Nasal 50 MCG/SPRAY BOTTLE NS SCH (10:46)
[2019-05-09] MEDS: Ascorbic Acid 500 MG TABLET PO SCH (10:46)
[2019-05-09] MEDS: Furosemide 40 MG/4 ML VIAL IVP SCH ×2 (10:46→17:13)
[2019-05-09] MEDS: Pyridoxine (B-6) 50 MG TABLET PO SCH (10:46)
[2019-05-09] MEDS: Magnesium Oxide 400 MG TABLET PO SCH (10:46)
[2019-05-09] MEDS: Metoprolol XL (24 HR) Succ 50 MG TAB.ER.24H PO SCH (10:46)
[2019-05-09] MEDS: predniSONE 20 MG TABLET PO SCH (10:46)
[2019-05-09] MEDS: Aspirin 81 MG TAB.CHEW PO SCH (10:46)
[2019-05-09] MEDS: Gabapentin 300 MG CAPSULE PO SCH (10:46)
[2019-05-09] MEDS ORDERED: Potassium Phosphate 44 MEQ in 0.9 % Sodium Chloride 250 ML IVPB ONE (10:59)
[2019-05-09] MEDS ORDERED: Methyl Salicylate/Menthol 28 GM TUBE TP PRN (11:10)
[2019-05-09] MEDS ORDERED: Methyl Salicylate/Menthol 57 APPL/57 GM TUBE TP PRN (11:30)
[2019-05-09] MEDS: *HR* FentaNYL PATCH 25 MCG PATCH TD SCH (14:53)
[2019-05-09] MEDS: traZODone 50 MG TABLET PO SCH (20:14)
[2019-05-10] MEDS: Sucralfate 1 GM TABLET PO SCH ×4 (00:06→17:17)
[2019-05-10] MEDS ORDERED: *HR* HYDROmorphone 2 MG TABLET PO ONE (00:33)
[2019-05-10 04:44] LABS: Hematocrit 24.5 % (37.5-50.1); Hemoglobin 7.8 g/dL (12.9-16.9); Mean Corpuscular HGB Conc 31.8 g/dL (31.6-35.5); Mean Corpuscular Hemoglobin 30.6 pg (28.0-33.3); Mean Corpuscular Volume 96.1 fL (83.0-100.0); Mean Platelet Volume 9.2 fL (9.4-12.4); Platelet Count 537 K/mcL (140-400); Red Blood Count 2.55 M/mcL (4.19-5.50); Red Cell Distribution Width 21.2 % (11.5-14.5); White Blood Count 10.3 K/mcL (4.3-11.1)
[2019-05-10 05:04] LABS: BUN/Creatinine Ratio 57 (6-26); Blood Urea Nitrogen 52 mg/dL (8-23); Calcium 8.5 mg/dL (8.6-10.3); Carbon Dioxide 34 mEq/L (23-29); Chloride 92 mEq/L (98-107); Glucose 245 mg/dL (70-105); Osmolality,Calculated 302 (280-300); Sodium 135 mEq/L (136-145); eGFR For African Americans > 60 (> 60); eGFR For Non-African Americans > 60 (> 60)
[2019-05-10] MEDS: Furosemide 40 MG/4 ML VIAL IVP SCH ×2 (09:30→17:17)
[2019-05-10] MEDS: Magnesium Oxide 400 MG TABLET PO SCH (09:30)
[2019-05-10] MEDS: Aspirin 81 MG TAB.CHEW PO SCH (09:30)
[2019-05-10] MEDS: Ascorbic Acid 500 MG TABLET PO SCH (09:30)
[2019-05-10] MEDS: Gabapentin 300 MG CAPSULE PO SCH (09:30)
[2019-05-10] MEDS: Pyridoxine (B-6) 50 MG TABLET PO SCH (09:30)
[2019-05-10] MEDS: predniSONE 20 MG TABLET PO SCH (09:30)
[2019-05-10] MEDS: Metoprolol XL (24 HR) Succ 50 MG TAB.ER.24H PO SCH (09:30)
[2019-05-10] MEDS: Insulin LISPRO 300 UNITS/3 ML VIAL SQ SCH ×4 (09:31→19:38)
[2019-05-10] MEDS: Fluticasone Propionate Nasal 50 MCG/SPRAY BOTTLE NS SCH (09:31)
[2019-05-10] MEDS: Insulin DETEMIR 100 UNIT/ML X5UNITS SQ SCH ×2 (09:33→19:40)
[2019-05-10 16:34] LABS: Estimated Average Glucose 157 mg/dl
[2019-05-10] MEDS: traZODone 50 MG TABLET PO SCH (19:35)
[2019-05-10] MEDS ORDERED: Pramoxine/Zinc acetate Lotion 177 APPL/177 ML BOTTLE TP PRN (23:37)
[2019-05-11] MEDS: Sucralfate 1 GM TABLET PO SCH ×5 (00:03→21:56)
[2019-05-11] MEDS ORDERED: *HR* HYDROmorphone 2 MG TABLET PO ONE (00:52)
[2019-05-11 02:08] LABS: Hematocrit 24.4 % (37.5-50.1); Hemoglobin 7.6 g/dL (12.9-16.9); Mean Corpuscular HGB Conc 31.1 g/dL (31.6-35.5); Mean Corpuscular Hemoglobin 30.9 pg (28.0-33.3); Mean Corpuscular Volume 99.2 fL (83.0-100.0); Mean Platelet Volume 9.3 fL (9.4-12.4); Platelet Count 698 K/mcL (140-400); Red Blood Count 2.46 M/mcL (4.19-5.50); Red Cell Distribution Width 21.5 % (11.5-14.5)
[2019-05-11 02:09] LABS: White Blood Count 16.9 K/mcL (4.3-11.1)
[2019-05-11 02:25] LABS: BUN/Creatinine Ratio 54 (6-26); Blood Urea Nitrogen 53 mg/dL (8-23); Carbon Dioxide 31 mEq/L (23-29); Chloride 92 mEq/L (98-107); Glucose 317 mg/dL (70-105); Osmolality,Calculated 305 (280-300); Potassium 3.7 mEq/L (3.5-5.1); Sodium 134 mEq/L (136-145); eGFR For African Americans > 60 (> 60); eGFR For Non-African Americans > 60 (> 60)
[2019-05-11] MEDS: Magnesium Oxide 400 MG TABLET PO SCH (09:22)
[2019-05-11] MEDS: Gabapentin 300 MG CAPSULE PO SCH (09:22)
[2019-05-11] MEDS: Ascorbic Acid 500 MG TABLET PO SCH (09:22)
[2019-05-11] MEDS: Metoprolol XL (24 HR) Succ 50 MG TAB.ER.24H PO SCH (09:23)
[2019-05-11] MEDS: Pyridoxine (B-6) 50 MG TABLET PO SCH (09:24)
[2019-05-11] MEDS: Aspirin 81 MG TAB.CHEW PO SCH (09:24)
[2019-05-11] MEDS: Furosemide 40 MG/4 ML VIAL IVP SCH ×2 (09:24→16:14)
[2019-05-11] MEDS: Insulin LISPRO 300 UNITS/3 ML VIAL SQ SCH ×4 (09:26→21:51)
[2019-05-11] MEDS: Fluticasone Propionate Nasal 50 MCG/SPRAY BOTTLE NS SCH (09:27)
[2019-05-11] MEDS: Acetaminophen 325 MG TABLET PO PRN (21:50)
[2019-05-11] MEDS: Insulin DETEMIR 100 UNIT/ML X5UNITS SQ SCH (21:50)
[2019-05-11] MEDS: traZODone 50 MG TABLET PO SCH (21:50)
[2019-05-12] MEDS: Acetaminophen 325 MG TABLET PO PRN (05:15)
[2019-05-12] MEDS: Sucralfate 1 GM TABLET PO SCH ×4 (05:15→23:28)
[2019-05-12 06:46] LABS: Hematocrit 21.1 % (37.5-50.1); Hemoglobin 6.6 g/dL (12.9-16.9); Mean Corpuscular HGB Conc 31.3 g/dL (31.6-35.5); Mean Corpuscular Hemoglobin 31.6 pg (28.0-33.3); Mean Platelet Volume 9.5 fL (9.4-12.4); Platelet Count 529 K/mcL (140-400); Red Blood Count 2.09 M/mcL (4.19-5.50); Red Cell Distribution Width 22.8 % (11.5-14.5); White Blood Count 10.8 K/mcL (4.3-11.1)
[2019-05-12 07:05] LABS: BUN/Creatinine Ratio 56 (6-26); Blood Urea Nitrogen 50 mg/dL (8-23); Calcium 8.8 mg/dL (8.6-10.3); Carbon Dioxide 32 mEq/L (23-29); Chloride 93 mEq/L (98-107); Glucose 189 mg/dL (70-105); Osmolality,Calculated 302 (280-300); Potassium 3.9 mEq/L (3.5-5.1); Sodium 137 mEq/L (136-145); eGFR For African Americans > 60 (> 60); eGFR For Non-African Americans > 60 (> 60)
[2019-05-12] MEDS: Metoprolol XL (24 HR) Succ 50 MG TAB.ER.24H PO SCH (08:59)
[2019-05-12] MEDS: Magnesium Oxide 400 MG TABLET PO SCH (08:59)
[2019-05-12] MEDS: Fluticasone Propionate Nasal 50 MCG/SPRAY BOTTLE NS SCH (08:59)
[2019-05-12] MEDS: Ascorbic Acid 500 MG TABLET PO SCH (08:59)
[2019-05-12] MEDS: Gabapentin 300 MG CAPSULE PO SCH (08:59)
[2019-05-12] MEDS: Aspirin 81 MG TAB.CHEW PO SCH (08:59)
[2019-05-12] MEDS: Pyridoxine (B-6) 50 MG TABLET PO SCH (08:59)
[2019-05-12] MEDS: Furosemide 40 MG/4 ML VIAL IVP SCH ×2 (09:00→17:54)
[2019-05-12] MEDS: Insulin LISPRO 300 UNITS/3 ML VIAL SQ SCH ×4 (09:00→20:51)
[2019-05-12] MEDS ORDERED: 0.9 % Sodium Chloride 250 ML ONE (12:19)
[2019-05-12] MEDS: *HR* FentaNYL PATCH 25 MCG PATCH TD SCH (16:31)
[2019-05-12 17:31] LABS: Hematocrit 25.5 % (37.5-50.1); Hemoglobin 8.2 g/dL (12.9-16.9)
[2019-05-12] MEDS: Insulin DETEMIR 100 UNIT/ML X5UNITS SQ SCH (20:51)
[2019-05-12] MEDS: traZODone 50 MG TABLET PO SCH (20:51)
[2019-05-12] MEDS: Hydroxyurea 500 MG CAPSULE PO SCH (20:56)
[2019-05-13 03:52] LABS: Hematocrit 23.6 % (37.5-50.1); Hemoglobin 7.6 g/dL (12.9-16.9); Mean Corpuscular HGB Conc 32.2 g/dL (31.6-35.5); Mean Corpuscular Hemoglobin 30.4 pg (28.0-33.3); Mean Corpuscular Volume 94.4 fL (83.0-100.0); Mean Platelet Volume 9.5 fL (9.4-12.4); Platelet Count 414 K/mcL (140-400); Red Cell Distribution Width 22.1 % (11.5-14.5); White Blood Count 8.8 K/mcL (4.3-11.1)
[2019-05-13 04:10] LABS: BUN/Creatinine Ratio 54 (6-26); Blood Urea Nitrogen 46 mg/dL (8-23); Calcium 8.4 mg/dL (8.6-10.3); Carbon Dioxide 32 mEq/L (23-29); Chloride 95 mEq/L (98-107); Glucose 198 mg/dL (70-105); Osmolality,Calculated 301 (280-300); Potassium 3.5 mEq/L (3.5-5.1); Sodium 137 mEq/L (136-145); eGFR For African Americans > 60 (> 60); eGFR For Non-African Americans > 60 (> 60)
[2019-05-13] MEDS ORDERED: 0.9 % Sodium Chloride 250 ML ONE (04:55)
[2019-05-13] MEDS: Sucralfate 1 GM TABLET PO SCH ×4 (05:18→22:05)
[2019-05-13 08:23] LABS: Hematocrit 27.5 % (37.5-50.1); Hemoglobin 9.1 g/dL (12.9-16.9)
[2019-05-13] MEDS: Metoprolol XL (24 HR) Succ 50 MG TAB.ER.24H PO SCH (09:01)
[2019-05-13] MEDS: Hydroxyurea 500 MG CAPSULE PO SCH ×2 (09:02→20:42)
[2019-05-13] MEDS: Magnesium Oxide 400 MG TABLET PO SCH (09:02)
[2019-05-13] MEDS: Ascorbic Acid 500 MG TABLET PO SCH (09:02)
[2019-05-13] MEDS: Gabapentin 300 MG CAPSULE PO SCH (09:03)
[2019-05-13] MEDS: Pyridoxine (B-6) 50 MG TABLET PO SCH (09:04)
[2019-05-13] MEDS: Aspirin 81 MG TAB.CHEW PO SCH (09:04)
[2019-05-13] MEDS: Furosemide 40 MG/4 ML VIAL IVP SCH ×2 (09:09→16:44)
[2019-05-13] MEDS: Fluticasone Propionate Nasal 50 MCG/SPRAY BOTTLE NS SCH (09:15)
[2019-05-13] MEDS: Insulin LISPRO 300 UNITS/3 ML VIAL SQ SCH ×4 (09:17→20:44)
[2019-05-13 12:17] LABS: Hemoglobin 8.4 g/dL (12.9-16.9)
[2019-05-13] MEDS: Acetaminophen 325 MG TABLET PO PRN (16:40)
[2019-05-13] MEDS: traZODone 50 MG TABLET PO SCH (20:42)
[2019-05-13] MEDS ORDERED: Insulin DETEMIR 100 UNIT/ML X5UNITS SQ SCH (21:00)
[2019-05-14] MEDS: Acetaminophen 325 MG TABLET PO PRN (05:25)
[2019-05-14] MEDS: Sucralfate 1 GM TABLET PO SCH (05:25)
[2019-05-14 07:53] VITALS: BP 117/72
[2019-05-14] MEDS: Insulin LISPRO 300 UNITS/3 ML VIAL SQ SCH (08:04)
[2019-05-14] MEDS: Hydroxyurea 500 MG CAPSULE PO SCH (08:09)
[2019-05-14] MEDS: Metoprolol XL (24 HR) Succ 50 MG TAB.ER.24H PO SCH (08:10)
[2019-05-14] MEDS: Aspirin 81 MG TAB.CHEW PO SCH (08:10)
[2019-05-14] MEDS: Furosemide 40 MG/4 ML VIAL IVP SCH (08:10)
[2019-05-14] MEDS: Ascorbic Acid 500 MG TABLET PO SCH (08:10)
[2019-05-14] MEDS: Pyridoxine (B-6) 50 MG TABLET PO SCH (08:10)
[2019-05-14] MEDS: Magnesium Oxide 400 MG TABLET PO SCH (08:10)
[2019-05-14] MEDS: Gabapentin 300 MG CAPSULE PO SCH (08:10)
[2019-05-14] MEDS: Fluticasone Propionate Nasal 50 MCG/SPRAY BOTTLE NS SCH (08:28)
== END 2019-05-14 11:35 | DRG 291 ==
LOC: 2NENU → SUATTDRO 19:58
PROVIDERS: ADMIT Internal Medicine; ATTEND Internal Medicine